=== PATIENT | male | born 1950 | race Caucasian/White ===

== ENCOUNTER 2016-04-25 06:50 | Day surgery (SDC) | payer MEDICARE, OTHER ==
[~2016-04-25 06:50] MED LIST: RINGERS SOLUTION,LACTATED 1,000 ML IV PRN
--- OUTSIDE RECORDS SUMMARY | 2016-04-25 06:54 | XMS REPORT | Continuity of Care Document ---
:1950 Author Organization [facility] ([facility]) Address [address] [place] [address] Phone [phone] Care Team Providers Name Role Phone Provider, No-Primary Care Primary Care Provider Unavailable Source Comments This disclosure is being made pursuant to the Care Everywhere program, applicable federal and state laws, and may not contain all informaitonavailable regarding this patient.[facility] ([facility]) Active Allergies and Adverse Reactions Not on File Current Medications Not on file Active Problems Not on file Social History Tobacco Use Types Packs/Day Years Used Date Never Assessed Plan of Care Health Maintenance Due Date Last Done Comments HCV Screening 1950 Hepatitis B Vaccine (1 of 3 - Primary Series) 1950 Tdap Vaccine 07/19/1959 Lipid Disorder Screening 1966 Td Vaccine 1966 Colonoscopy 1998 Prostate Cancer Screening 1998 Zoster Vaccine 2008 Pneumococcal Vaccine (1 of 2 - PCV13) 2013 Influenza Vaccine: Seasonal (#1) 10/01/2015 Results from Last 3 Months Not on file
[2016-04-25] MEDS ORDERED: RINGERS SOLUTION,LACTATED 1,000 ML IV ONE (07:19)
[2016-04-25] MEDS ORDERED: ceFAZolin SODIUM 1 GM VIAL IV ONE (07:55)
[2016-04-25] MEDS ORDERED: BUPIVACAINE HCL/EPINEPHRINE 50 ML VIAL IJ ONE ×2 (08:05)
[2016-04-25] MEDS ORDERED: MUPIROCIN 22 APPL TUBE TP ONE (08:12)
[2016-04-25] MEDS ORDERED: oxyCODONE HCL/ACETAMINOPHEN 1 TAB TABLET PO ONE (09:00)
--- NOTE | 2016-04-25 09:23 | OR ---
Operative Report - Dictated Report Narrative: OPERATIVE REPORT DATE OF OPERATION: 04/25/2016 PREOPERATIVE DIAGNOSIS: Lesion left forearm POSTOPERATIVE DIAGNOSIS: Lesion left forearm (pathology pending) OPERATION: Excision of lesion left forearm (specimen size 6 cm x 2 cm) SURGEON: Harsh Martinez MD ANESTHESIA: DONALD Bruce CRNA INDICATIONS FOR PROCEDURE: The patient is a 65-year-old male with a nonhealing , enlarging lesion on the left forearm. This is suspicious for carcinoma. He is brought for excision FINDINGS: Complete excision of the lesion to gross inspection NARRATIVE OF PROCEDURE: The patient was identified preoperatively, the surgical site was marked, and prior to the administration of anesthetic a multidisciplinary timeout was observed. With the patient in the supine position and the left arm abducted, the left arm was prepped with Betadine solution and the area around the lesion isolated with 4 sterile towels. The remainder the patient was covered with a sterile disposable drape. The area around the lesion was infiltrated with 0.5% Marcaine with epinephrine. A transverse elliptical skin incision was outlined with a marking pen to include the lesion and adjacent skin changes. The skin incision was made sharply. The lesion was then removed by electrocautery dissection. The specimen was then oriented with marking sutures and submitted to pathology. The wound was inspected for hemostasis which appeared complete. The skin flaps were undermined to allow tension-free closure. The wound was closed with interrupted vertical mattress sutures of 3-0 nylon. The operative site was washed and dried. A dressing of Mepilex border and Medipore tape was applied. The operative procedure was terminated at this point. The patient tolerated the anesthetic and procedure well without complication. There was no measurable blood loss. All counts were correct. The patient was transferred back to the ambulatory surgery area awake and in stable condition. The patient remained stable throughout a period of postoperative observation. He denied incisional discomfort, was up without assistance, and tolerated PO intake. The dressing remained dry. He was discharged home with instructions to keep the area dry and covered. He was given a prescription for Percocet 5/ 325 mg #20 one or 2 by mouth every 4-6 hours as needed for pain. He has phone numbers to call if needed for signs of wound infection or hematoma, and a follow -up office appointment was made for 1 week. Reviewed and electronically signed
[2016-04-25 09:38] VITALS: BP 133/64
== END 2016-04-25 06:51 | disposition home or self-care (01) ==
LOC: AMB 06:50
PROVIDERS: ATTEND Surgery
PROC: 0HBEXZX Excision of Left Lower Arm Skin, External Approach, Diagnostic (ICD-10-PCS; principal; 2016-04-25 08:00)
DX: C44.619 Basal cell carcinoma of skin of left upper limb, including shoulder (principal); I10 Essential (primary) hypertension; I25.10 Atherosclerotic heart disease of native coronary artery without angina pectoris; E78.5 Hyperlipidemia, unspecified; J45.909 Unspecified asthma, uncomplicated; Z87.891 Personal history of nicotine dependence; Z68.34 Body mass index [BMI] 34.0-34.9, adult

== ENCOUNTER 2016-07-02 06:39 | Day surgery (SDC) | payer MEDICARE, OTHER ==
--- OUTSIDE RECORDS SUMMARY | 2016-07-02 06:42 | XMS REPORT | Continuity of Care Document ---
:1950 Author Organization [facility] ([facility]) [place] [address] Phone [phone] Care Team Providers Name Role Phone Provider, No-Primary Care Primary Care Provider Unavailable Source Comments This disclosure is being made pursuant to the Care Everywhere program, applicable federal and state laws, and may not contain all informaitonavailable regarding this patient.[facility] ([facility]) Active Allergies and Adverse Reactions Not on File Current Medications Not on file Active Problems Not on file Most Recent Encounters Date Type Specialty Providers Description 05/16/2016 Lab Requisition Pathology [facility] Dx: Basal cell carcinoma of skin of right ear and external auricular canal Social History Tobacco Use Types Packs/Day Years [...] (#1) 10/01/2015 Results from Last 3 Months DERMATOPATHOLOGY EXAM (05/14/2016 9:00 AM) Component Value Range Case Report Surgical Pathology Case: [id number] Authorizing Provider:[facility] Collected: 05/14/2016 09:00 AM Pathologist: Foreign Cross MD Received:05/16/2016 01:24 PM Specimen:Skin, other, specify, R ear Diagnosis Skin, right ear, shave biopsy: Basal cell carcinoma, with nodular features. Actinic keratosis Clinical Information Tissue source/site: Shave R ear. Pertinent clinical history and findings: 1.5 cm pearly papule. Clinical differential diagnosis: BCC. Gross Description A.Received in formalin, in a container labeled Dheeraj Lentz ([facility]), date of , and "R ear", is a 1.0 x 0.6 x 0.1 cm royal-braun shave biopsy.The specimen is inked, bisected and submitted entirely in A1. AJF/tkr Microscopic Description Sections of a skin shave show serous-crusted and eroded proliferation of islands of atypical basaloid epithelial cells with peripheral palisading, extending from the epidermis into the dermis, transec deirdre at deep margin.Background parakeratotic proliferation of lower epidermal atypical keratinocytes is also seen, overlying dermal solar elastosis and scattered chronic inflammation.Keratinocyte atypia extends to peripheral margin. Performed by:Enrique Correa MD, R4/rls I have personally reviewed this case and edited the report as necessary. Foreign Cross MD Specimen Skin - Skin, other, specify
[2016-07-02] MEDS ORDERED: RINGERS SOLUTION,LACTATED 1,000 ML IV ONE ×2 (07:00→07:31)
[2016-07-02] MEDS ORDERED: RINGERS SOLUTION,LACTATED 1,000 ML IV PRN (08:04)
[2016-07-02 09:01] VITALS: BP 135/72
--- NOTE | 2016-07-02 13:37 | OR ---
Operative Report - Dictated Report Narrative: OPERATIVE REPORT DATE OF OPERATION: 07/02/2016 PREOPERATIVE DIAGNOSIS: History of colon polyps POSTOPERATIVE DIAGNOSIS: Diverticulosis. Normal colonoscopy to the cecum (no residual polyps) OPERATION: Colonoscopy SURGEON: Harsh Martinez MD ANESTHESIA: DONALD Wilson CRNA INDICATIONS FOR PROCEDURE: The patient is a 65-year-old male who underwent EGD and colonoscopy in June 2015 to investigate heme positive stool. On that exam he was found to have multiple tubular adenomas and a tubulovillous adenoma. He was brought back for a short interval repeat exam in January 2016. On that exam he had 4 small additional tubular adenomas. He is brought for interval exam to ensure complete colon clearance prior to establishing a longer surveillance interval. FINDINGS: No residual polyps. Diverticulosis NARRATIVE OF PROCEDURE: The patient was identified in the holding area, and prior to the administration of anesthetic, a multidisciplinary timeout was observed. With the patient in the left lateral position and after the administration of intravenous sedation, the perineum was inspected. There was no evidence of pilonidal disease or skin breakdown. The external appearance of the anus was normal. Sphincter tone was good. The flexible fiberoptic colonoscope was inserted into the rectum which was insufflated with air. The rectal mucosa and submucosal vascular pattern appeared normal, the prep was seen to be complete. The scope was advanced through the sigmoid colon, up the descending colon, and around the splenic flexure where the triangular haustral architecture of the transverse colon was seen. The scope was advanced across the transverse colon, around the hepatic flexure to the cecum, where the confluence of tenia and the ileocecal valve were identified. The mucosa at this level appeared normal. The scope was then slowly withdrawn in a circular fashion so that all aspects of colonic mucosa were inspected. The colon was somewhat capacious in character but normal in course. The haustral architecture appeared well preserved throughout with no evidence of external compression. The mucosa and submucosal vascular pattern appeared normal, specifically there was no gross evidence to suggest colitis or inflammatory bowel disease and no AV malformations were seen. There were scattered not impacted noninflamed diverticular openings. Although several healed polypectomy sites were located, no additional remaining polyps were encountered. The scope was gradually withdrawn to the level of the rectum. As much insufflated air as possible was removed. The scope was withdrawn from the patient and the procedure terminated. The patient tolerated the anesthetic and procedure well without complication and was transferred back to the ambulatory surgery area awake and in stable condition. The patient remained stable throughout a period of postoperative observation. He denied abdominal discomfort, was able to tolerate by mouth intake, and was up without assistance. I shared the operative findings with the patient and he was given copies of the photographs which appear in the medical record. He was discharged home with instructions not to engage in hazardous activity today, but may resume normal activity tomorrow, and advance diet as tolerated. He is to continue those medications as listed in the history and physical exam. RECOMMENDATION: Colon surveillance in 3 years Reviewed and electronically signed
== END 2016-07-02 06:40 | disposition home or self-care (01) ==
LOC: AMB 06:39
PROVIDERS: ATTEND Surgery
PROC: 0DJD8ZZ Inspection of Lower Intestinal Tract, Via Natural or Artificial Opening Endoscopic (ICD-10-PCS; principal; 2016-07-02 07:35)
DX: Z12.11 Encounter for screening for malignant neoplasm of colon (principal); K57.30 Diverticulosis of large intestine without perforation or abscess without bleeding; I10 Essential (primary) hypertension; E78.5 Hyperlipidemia, unspecified; J45.909 Unspecified asthma, uncomplicated; I25.10 Atherosclerotic heart disease of native coronary artery without angina pectoris; K21.9 Gastro-esophageal reflux disease without esophagitis; Z87.891 Personal history of nicotine dependence; Z68.34 Body mass index [BMI] 34.0-34.9, adult; Z86.010 Personal history of colon polyps